=== PATIENT | female | born 1965 | race Caucasian/White ===

== ENCOUNTER → 2020-06-22 | Outpatient (CLI) | payer BC ==
--- NOTE | 2020-06-22 09:30 | CT ---
EXAMINATION TYPE: CT soft tissue neck w con DATE OF EXAM: 06/22/2020 COMPARISON: None HISTORY: 54-year-old female R22.1, neck mass, R07.0, sore throat. TECHNIQUE: Contiguous axial scanning of the soft tissues of the neck performed with IV Contrast, mariana ent injected with 100 mL of Isovue 300. Coronal/sagittal reconstructions performed. CT DLP: 434.9 mGycm Automated exposure control for dose reduction was used. FINDINGS: Visualized intracranial structures, paranasal sinuses, and mastoid air cells clear. Nasopharynx appears clear. Mild bilateral palatine tonsillar hypertrophy. Mild lingual tonsillar hypertrophy. Otherwise, orophar ynx appears clear. Epiglottis and prevertebral soft tissues appear satisfactory. Glottic structures appear unremarkable. Along the subglottic airway, there is slight mural-based thic kening/indentation along the right lateral wall, refer to axial image 34 and coronal image 28. Remaining airway and visualized upper lungs are clear. Nonspecific small 6 mm hypodense nodule right lobe of the thyroid gland. Parotid glands and submandib ular glands appear satisfactory. Scattered nonenlarged lymph nodes throughout the neck measuring up to 7 mm short axis. Mild degenerative disc disease lower cervical spine. IMPRESSION: 1. MILD BILATERAL PALATINE AND LINGUAL TONSILLAR HYPERTROPHY. 2. FOCAL MURAL BASED THICKENING/INDENTATION ALONG THE RIGHT LATERAL WALL OF THE SUBGLOTTIC AIRWAY/UPP ER TRACHEA. DIRECT VISUALIZATION CAN EXCLUDE A MUCOSAL LESION HERE.
== END | disposition home or self-care (01) ==
LOC: RADCTMAIN 08:00
PROVIDERS: ATTEND Otolaryngology
DX: J35.1 Hypertrophy of tonsils (principal); Z88.8 Allergy status to other drugs, medicaments and biological substances
CPT/HCPCS: 70491; Q9967

== ENCOUNTER → 2021-11-13 | Outpatient (CLI) | payer OTHER ==
--- NOTE | 2021-11-13 12:07 | US ---
EXAMINATION TYPE: US thyroid st tissue head/neck DATE OF EXAM: 11/13/2021 COMPARISON: Correlation CT 06/22/2020 CLINICAL HISTORY: 56-year-old female E04.1 Nodule. TECHNIQUE: Multiple sonographic images of the thyroid gland are obtained. FINDINGS: GLAND SIZE: Right Lobe: 4.9 x 1.0 x 2.0 cm Overall Parenchyma: heterogenous Left Lobe: 4.1 x 1.2 x 1.4 cm Overall Parenchyma: heterogeneous Isthmus Thickness: 0.3 cm NODULES RIGHT: # of nodules measured on right: 1. 0.6 X 0.5 x 0.7 cm, lower, solid or almost completely solid, hypoechoic TR4 nodule, which is wid er than tall, with smooth margins, without echogenic foci. LEFT: # of nodules measured on left: 1. 0.5 X 0.5 x 0.5 cm, lower, solid or almost completely solid, hypoechoic TR4 nodule, which is wid er than tall, with smooth margins, without echogenic foci. ISTHMUS: # of nodules measured in the isthmus: 0 Bilateral neck scanned, no evidence of lymphadenopathy. IMPRESSION: A solid TR4 nodule on either side measuring up to 7 mm on the right and 5 mm on the left. Follow-up c an be considered with FNA if the nodule reaches 1.5 cm.
== END | disposition home or self-care (01) ==
LOC: RADUSWWP 09:26
PROVIDERS: ATTEND Otolaryngology
DX: E04.2 Nontoxic multinodular goiter (principal)
CPT/HCPCS: 76536

== ENCOUNTER 2025-03-28 09:10 | Day surgery (SDC) | payer BC, OTHER ==
[2025-03-28 10:01] VITALS: RESP 18; TEMP 97.1
[2025-03-28] MEDS: LACTATED RINGERS 1,000 ML IV SCH (10:09)
[2025-03-28] MEDS: IV FLUID CONTINUATION 1,000 ML IV ONE (10:09)
[2025-03-28] MEDS ORDERED: PROPOFOL 10 MG/ML 20 ML VIAL IV ONE (10:36)
--- NOTE | 2025-03-28 11:04 | P.PCN ---
Date of Procedure: 03/28/25 Preoperative Diagnosis: Screening Postoperative Diagnosis: Transverse colon polyp x 2 Sigmoid colon polyp Internal hemorrhoid Procedure(s) Performed: Colonoscopy with hot snare polypectomy Anesthesia: MAC Surgeon: Yonas Hodges Pathology: other (Transverse colon polyp x 2, Sigmoid colon polyp) Condition: stable Disposition: same day Indications for Procedure: 59-year-old female presents for colonoscopy. She has history of colon polyps. Denies any blood in her stool. No family history of colon cancer. She also complains of possible hemorrhoid. Risks, benefits and alternatives were provided to the patient. All questions answered prior to attending endoscopy suite. Operative Findings: Transverse colon polyp x 2 Sigmoid colon polyp Internal hemorrhoids Description of Procedure: The patient was brought to the endoscopy suite and placed in left lateral decubitus position and adequate sedation was achieved using conscious sedation. Digital rectal exam was performed and mild internal hemorrhoids were palpated. An endoscope was then placed in the rectum and advanced to the cecum as identified by landmarks including the appendiceal orifice and the ileocecal valve. The prep was good. The colonoscope was then slowly withdrawn, examining for any mucosal abnormalities. The cecum, ascending, transverse, descending and sigmoid colon were visualized adequately. There were no large neoplastic lesions noted throughout the colon. Some polyps were noted. 2 in the transverse colon these were removed with hot snare polypectomy. Similarly a small polyp was noted in the sigmoid colon and this was removed with forcep polypectomy. Hemostasis was maintained. No evidence of diverticulosis. Hemostasis was maintained. Retroflexion was performed in the rectum and terminal hemorrhoids. Excess air was removed, the colonoscope withdrawn and the procedure terminated. The patient was then transferred to the recovery unit in stable condition. Repeat colonoscopy should be performed in 3 years.
[2025-03-28 11:20] VITALS: BP 123/87; PULSE 80
== END 2025-03-28 11:56 | disposition home or self-care (01) ==
LOC: ORWHC2ENDO 09:10
PROVIDERS: ATTEND Surgery
DX: Z12.11 Encounter for screening for malignant neoplasm of colon (principal); D12.3 Benign neoplasm of transverse colon; D12.5 Benign neoplasm of sigmoid colon; K64.8 Other hemorrhoids; E78.5 Hyperlipidemia, unspecified; K21.9 Gastro-esophageal reflux disease without esophagitis; Z79.899 Other long term (current) drug therapy; Z86.0100 Personal history of colon polyps, unspecified; Z88.8 Allergy status to other drugs, medicaments and biological substances
CPT/HCPCS: 81025; 88305; 45380; 45385; J2704